=== PATIENT | female | born 1960 | race Caucasian/White ===

== ENCOUNTER 2018-12-17 00:10 | Emergency (ER) | payer OTHER ==
[~2018-12-17] VITALS: Ht 157.5 cm; Wt 59.0 kg
[2018-12-17] MEDS ORDERED: INTESTINEX680 M1 PO (03:01)
[2018-12-17] MEDS ORDERED: CEFUROXIME500 MG PO (03:01)
== END 2018-12-17 03:23 | disposition home or self-care (01) ==
LOC: ER 00:10
DX: N39.0 Urinary tract infection, site not specified (principal); R31.0 Gross hematuria